=== PATIENT | male | born 1975 | race Caucasian/White ===

== ENCOUNTER 2021-11-30 20:56 | Emergency (ER) | payer SELFPAY ==
[~2021-11-30] VITALS: Ht 170.2 cm; Wt 72.1 kg
[2021-12-01] MEDS ORDERED: IBUPROFEN 600MG TABLET PO NR (00:33)
[2021-12-01 01:48] LABS: CLARITY URINE CLEAR (CLEAR); COLOR URINE YELLOW (YELLOW); KETONES URINE TRACE (NEGATIVE); LEUKOCYTE ESTERASE URINE NEGATIVE (NEGATIVE); NITRITE URINE NEGATIVE (NEGATIVE); OCCULT BLOOD URINE NEGATIVE (NEGATIVE); PH URINE 5.5 (4.5-8.0); PROTEIN URINE NEGATIVE (NEGATIVE); SPECIFIC GRAVITY URINE 1.033 (1.005-1.030); UROBILINOGEN URINE 0.2 E.U./dL (0.2-1.0)
[2021-12-01] MEDS ORDERED: DOCU100T PO (02:06)
[2021-12-01] MEDS ORDERED: NAPR-681 PO (02:06)
[2021-12-01 02:20] VITALS: BP 122/78
== END 2021-12-01 02:22 | disposition home or self-care (01) ==
LOC: ER 21:08
DX: K40.90 Unilateral inguinal hernia, without obstruction or gangrene, not specified as recurrent (principal); N50.3 Cyst of epididymis; N43.3 Hydrocele, unspecified
CPT/HCPCS: 76870; 81003; 93976; 99284